=== PATIENT | male | born 1975 | race Caucasian/White ===

== ENCOUNTER 2016-12-14 11:18 | Emergency (ER) | payer MEDICAID ==
[2016-12-14] MEDS ORDERED: INSULIN ASPART, RECOMBINANT 100 UNITS/ML SUBQ ONE ×4 (11:54→14:07)
[2016-12-14] MEDS ORDERED: Sodium Chloride 0.9% 1,000 ML IV ONE (11:56)
--- NOTE | 2016-12-14 12:01 | ED Physician Chart ---
Chief Complaint/HPI - Patient Information Date Seen:: 12/14/16 Time Seen:: 11:56 Chief Complaint:: fingers problem History of Present Illness:: pt is here w his older adult social work specialist (who I have not encountered yet) He is homeless and has known hx of DM for which he tells me he is not on meds for because he forgets ( I find it interesting that he can easily remember that he forgets to take his meds bc of this...). His sign in complaint is that his fingers have some cracking on their volar surfaces. He has very thick callouse on his hands ..which he attributes to being homeless and carrying his belongings around bs at triage 393 he last saw his pmd 1 yr ago. Allergies:: Allergies Allergy/AdvReac Type Severity Reaction Status Date / Time No Known Allergies Allergy Verified 12/14/16 11:39 Vitals:: Vital Signs - 8 hr 12/14/16 11:39 Temp 97.4 F HR 88 RR 16 BP 135/89 O2 Sat % 97 Historian:: Patient Review of Systems - Review of Systems General/Constitutional: No fever, No chills, No weight loss, No weakness, No diaphoresis, No edema, No loss of appetite Skin: Skin lesions (b hands), No skin lesions, No rash, No bruising Head: No headache, No light-headedness Eyes: No loss of vision, No pain, No diplopia ENT: No earache, No nasal drainage, No sore throat, No tinnitus Neck: No neck pain, No swelling, No thyromegaly, No stiffness, No mass noted Cardio Vascular: No chest pain, No palpitations, No PND, No orthopnea, No edema Pulmonary: No SOB, No cough, No sputum, No wheezing GI: No nausea, No vomiting, No diarrhea, No pain, No melena, No hematochezia, No constipation, No hematemesis G/U: No dysuria, No frequency, No hematuria Musculoskeletal: No bone or joint pain, No back pain, No muscle pain Endocrine: No polyuria, No polydipsia Psychiatric: No prior psych history, No depression, No anxiety, No suicidal ideation Hematopoietic: No bruising, No lymphadenopathy Allergic/Immuno: No urticaria, No angioedema Neurological: No syncope, No focal symptoms, No weakness, No paresthesia, No headache, No seizure, No dizziness, No confusion, No vertigo Past Medical History - Past Medical History Past Medical History: DM, 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 despite his stated hx of huntingtons chorea and noncompliant w meds...I see no tremors. pt seems to be competent decision maker. wn/wd. b hands have thick callous over volar surfaces. there is slt cracking between folds of callous in 1-2 places..though no pus or redness. no drainage. does not appear infected. ok rom. ok cap refill. Head: Atraumatic Eyes: Lids, conjuctiva normal, PERRL, EOMI Skin: Nl inspection, No rash, No skin lesions, No ecchymosis, Well hydrated, No lymphadenopathy ENMT: External ears, nose nl, Nasal exam nl, Lips, teeth, gums nl Neck: Nontender, Full ROM w/o pain, No JVD, No nuchal rigidity, No bruit, No mass, No stridor Respiratory: Nl effort/Exclusion, Clear to Auscultation, No Wheeze/Rhonchi/Rales Cardio Vascular: RRR, No murmur, gallop, rubs, NL S1 S2 GI: No tenderness/rebounding/guarding, No organomegaly, No hernia, Normal BS's, Nondistended, No mass/bruits, No McBurney tenderness : No CVA tenderness Extremities: No tenderness or effusion, Full ROM, normal strength in all extremities, No edema, Normal digits & nails Neuro/Psych: Alert/oriented, DTR's symmetric, Normal sensory exam, Normal motor strength, Judgement/insight normal, Mood normal, Normal gait, No focal deficits Misc: normal gait, Normal back, No paraspinal tenderness Labs/Radiology/EKG Results - Lab Results Results: Laboratory Tests 12/14/16 11:49 POC Glucose 393 H ED Septic Shock - . Is Septic Shock (SBP<90, OR Lactate>4 mmol\L) present?: No - <6hrs of presentation: Vital Signs: Vital Signs - 8 hr 12/14/16 11:39 Temp 97.4 F HR 88 RR 16 BP 135/89 O2 Sat % 97 Reassessment (Disposition) - Reassessment Reassessment:: case dw pts socal worker who is here. details of pt's life discussed. she has been helping him get his meds but stopped after 2 mo bc he was throwing them away and not taking them and was angry at her for making him go to pharmacy. he is aware of his DM problem but having seen his mom of HC and his sister (younger) is in [place] from HC sx...he says he would rather of DM than succumb slowly to HC. sw has contacted pts dad and attempted to get him to take over medical decision ctrl but Dad has resisted. recheck fsbs 188. at 3pm. have asked our sw to talk to pt also. Reassessment Condition:: Improved - Diagnosis Diagnosis:: 1 hyperglycemia ...known noncompliant DM 2 Huntingtons [place] 3 calloused skin on hands w cracked skin at skin folds of volar hands ( noninfected) - Aftercare/Follow up Instructions Aftercare/Follow-Up Instructions:: Counseled pt regarding lab results/diagnosis & need follow up Notes:: advise pt to get PMD. advise he takes his DM meds as rxd or he will surely face DM sequelae before too long. rx bactroban ointment for fingers ...I think to get this to heal he will need to remove the callouses to some degree to get flexibility of skin back..dw pt. may return if spreading redness/pus/fever. - Patient Disposition Discharge/Transfer:: Home Condition at Disposition:: Improved
[2016-12-14 12:22] LABS: RED BLOOD COUNT 4.93 Mil/cmm (4.30-5.70); WHITE BLOOD COUNT 6.8 Th/cmm (4.8-10.8)
[2016-12-14 12:23] LABS: % BASOPHILS 0.3 % (0.0-2.0); % EOSINOPHILS 2.3 % (0.0-5.0); % LYMPHOCYTES 16.7 % (20.0-50.0); % MONOCYTES 5.7 % (2.0-10.0); HEMATOCRIT 39.9 % (39.0-49.0); HEMOGLOBIN 13.7 gm/dL (13.2-17.3); MEAN CORPUSCULAR HEMOGLOBIN 27.7 pg (26.0-30.0); MEAN CORPUSCULAR HGB CONC 34.2 pg (28.0-36.0); MEAN PLATELET VOLUME 7.3 fl; NEUTROPHILE ABSOLUTE 5.1 Th/cmm (1.8-8.0); PLATELET COUNT 209 Th/cmm (150-400); RED CELL DISTRIBUTION WIDTH 12.6 % (11.5-20.0)
[2016-12-14 12:42] LABS: ALB/GLOB RATIO 1.2 (1.0-1.8); ALKALINE PHOSPHATASE 82 U/L (34-104); ANION GAP 8.1 (7.0-16.0); BILIRUBIN,TOTAL 0.6 mg/dL (0.3-1.0); BUN - UREA NITROGEN 9 mg/dL (7-25); BUN/CREATININE RATIO 12.9; CALCIUM SERUM 9.2 mg/dL (8.6-10.3); CARBON DIOXIDE 26.7 mEq/L (21.0-31.0); CHLORIDE 97 mEq/L (98-107); CREATININE - SERUM 0.7 mg/dL (0.7-1.3); GLUCOSE 428 mg/dL (70-105); POTASSIUM SERUM 3.8 mEq/L (3.5-5.1); SGOT 13 U/L (13-39); SGPT/ALT 15 U/L (7-52); SODIUM SERUM 128 mEq/L (136-145)
[2016-12-14] MEDS ORDERED: INSULIN HUMAN REGULAR 100 UNITS/ML UNIT ONE (12:47)
== END 2016-12-14 15:10 | disposition home or self-care (01) ==
LOC: ER 11:18
DX: E11.65 Type 2 diabetes mellitus with hyperglycemia (principal); G10 Huntington's disease; Z86.73 Personal history of transient ischemic attack (TIA), and cerebral infarction without residual deficits
CPT/HCPCS: 36415-UA; 80053-TC; 82948-90; 83036-90; 85025-TC; J1815; J7030; Z7502